=== PATIENT | female | born 1970 ===

== ENCOUNTER 2016-07-17 11:40 | Emergency (ER) | payer MEDICAID ==
[2016-07-17 11:44] VITALS: BMI 35.6
[2016-07-17 11:45] VITALS: BP 138/94; PULSE 72; RESP 19; TEMP 97.9; O2SAT 98
--- NOTE | 2016-07-17 12:30 | ED PDOC ---
HPI: General Adult Time Seen by Provider: 07/17/16 12:11 Chief Complaint (Nursing): Cough, Cold, Congestion Chief Complaint (Provider): Cough, cold, Congestion History Per: Patient History/Exam Limitations: no limitations Onset/Duration Of Symptoms: Days (X6 Days) Current Symptoms Are (Timing): Still Present Additional History Per: Patient Additional Complaint(s): Sara Farrar is a 46 y/o female with a past medical history of asthma, HTN and DM who presents to the ED with a chief complaint of a fever and cough that started 6 days ago. Associated symptoms includes chest congestion, runny nose, intermittent headache and right ear pain. Patient denies any recent travel or known sick contacts. Of note, patient reports to taking Ventolin, Advair, and Singulair for Asthma. Past Medical History Reviewed: Historical Data, Nursing Documentation, Vital Signs Vital Signs: Last Vital Signs Temp 97.9 F 07/17/16 11:44 Pulse 72 07/17/16 11:44 Resp 19 07/17/16 11:44 BP 138/94 H 07/17/16 11:44 Pulse Ox 98 07/17/16 12:51 - Medical History PMH: Asthma, Diabetes, HTN - Surgical History Surgical History: Other surgeries: Left Knee surgery, Right wrist surgery - Family History Family History: States: No Known Family Hx - Living Arrangements Living Arrangements: With Family - Social History Current smoker - smoking cessation education provided: No Ex-Smoker (has not smoked in the last 12 months): No Alcohol: Social Drugs: Denies - Home Medications Home Medications: Ambulatory Orders Medication Instructions Recorded Dorzolamide 2% [Trusopt] 1 drop OU TID #0 bottle 01/01/15 Albuterol 0.083% [Albuterol 0.083% 2.5 mg INH RQ4 PRN 11/04/15 Inhal Gladys (2.5 mg/3 ml) UD] Fluticasone/Salmeterol 250/50 1 puff IH TID 11/04/15 [Advair Diskus] Montelukast Sodium [Singulair] 10 mg PO DAILY 11/04/15 traMADol [Ultram] 50 mg PO .Q4-6 PRN 11/20/15 traMADol [Ultram] 50 mg PO PRN PRN 11/20/15 Ciprofloxacin [Cipro] 500 mg PO BID #6 tab 01/06/16 Dicyclomine [Bentyl] 10 mg PO QID PRN #10 cap 01/06/16 Ondansetron ODT [Zofran ODT] 4 mg PO Q6 PRN #10 odt 01/06/16 Azithromycin [Zithromax] 250 mg PO DAILY #6 tab 07/17/16 Benzonatate 200 mg PO TID PRN #20 capsule 07/17/16 - Allergies Allergies/Adverse Reactions: Allergies Allergy/AdvReac Type Severity Reaction Status Date / Time Penicillins Allergy Mild RASH Verified 07/17/16 12:11 Review of Systems ROS Statement: Except As Marked, All Systems Reviewed And Found Negative Constitutional: Positive for: Fever ENT: Positive for: Nose Congestion Respiratory: Positive for: Cough (with chest congestion). Negative for: Shortness of Breath, Hemoptysis, SOB with Exertion, Wheezing Gastrointestinal: Negative for: Nausea, Vomiting, Abdominal Pain Neurological: Positive for: Headache. Negative for: Dizziness Physical Exam - Reviewed Nursing Documentation Reviewed: Yes Vital Signs Reviewed: Yes - Physical Exam Appears: Positive for: Well, Non-toxic, No Acute Distress Head Exam: Positive for: ATRAUMATIC, NORMAL INSPECTION, NORMOCEPHALIC ENT: Positive for: Normal ENT Inspection, TM Is/Are (normal bilaterally), Nasal Congestion. Negative for: Pharyngeal Erythema, Tonsillar Exudate, Tonsillar Swelling Cardiovascular/Chest: Positive for: Regular Rate, Rhythm. Negative for: Murmur , Tachycardia Respiratory: Positive for: Normal Breath Sounds. Negative for: Wheezing, Respiratory Distress Gastrointestinal/Abdominal: Positive for: Normal Exam, Soft. Negative for: Tenderness Extremity: Negative for: Pedal Edema Neurologic/Psych: Positive for: Alert, Oriented - Laboratory Results Urine POC: Negative - ECG O2 Sat by Pulse Oximetry: 98 (RA) Pulse Ox Interpretation: Normal - Other Rad CXR X-Ray: Interpreted by Me, Viewed By Me X-Ray Interpretation: no infiltrate Medical Decision Making Medical Decision Makin: Initial Impression: 46 year old female with URI Symptoms Initial Plan: * Chest two views * ED Urine Stat * Re-Eval Will d/c with rx zithromax and tessalon perles. Patient instructed to continue with home advair and ventolin. Advised NSAID's for fever and body aches, fluids and rest. Advised PMD follow up in 2-3 days. Scribe Attestation: Documented by Mary Sauceda acting as a scribe for iLly Storm PA-C. Provider Scribe Attestation: All medical record entries made by the Scribe were at my direction and personally dictated by me. I have reviewed the chart and agree that the record accurately reflects my personal performance of the history, physical exam, medical decision making, and the department course for this patient. I have also personally directed, reviewed, and agree with the discharge instructions and disposition. Disposition - Clinical Impression Clinical Impression: Bronchitis - Patient ED Disposition Is Patient to be Admitted: No Counseled Patient/Family Regarding: Studies Performed, Diagnosis, Need For Followup, Rx Given - Disposition Referrals: Gulshan Brito MD [Staff Provider] - Disposition: Routine/Home Disposition Time: 12:56 Condition: STABLE Additional Instructions: Take rx meds as directed. Continue with home asthma meds. Over the counter tylenol or advil for fever or body aches. Rest and drink plenty of fluids. Follow up with primary care doctor in 2-3 days. Prescriptions: Azithromycin [Zithromax] 250 mg PO DAILY #6 tab Benzonatate 200 mg PO TID PRN #20 capsule PRN Reason: Cough Instructions: Acute Bronchitis (ED)
--- NOTE | 2016-07-17 13:08 | RAD ---
HISTORY: cough COMPARISON: 11/13/2015 TECHNIQUE: Chest PA and lateral FINDINGS: LUNGS: No active pulmonary disease. PLEURA: No significant pleural effusion identified. No pneumothorax apparent. CARDIOVASCULAR: Normal. OSSEOUS STRUCTURES: No significant abnormalities. VISUALIZED UPPER ABDOMEN: Normal. OTHER FINDINGS: None. IMPRESSION: No active disease.
== END 2016-07-17 13:00 | disposition home or self-care (01) ==
LOC: H.ER 11:40
DX: J06.9 Acute upper respiratory infection, unspecified (principal); J45.909 Unspecified asthma, uncomplicated; R50.9 Fever, unspecified; E11.9 Type 2 diabetes mellitus without complications; I10 Essential (primary) hypertension; R05 Cough; Z87.891 Personal history of nicotine dependence; Z88.0 Allergy status to penicillin

== ENCOUNTER 2017-06-23 11:15 | Emergency (ER) | payer MEDICAID ==
[2017-06-23 11:21] VITALS: BMI 36.2
[2017-06-23 11:22] VITALS: RESP 17
--- NOTE | 2017-06-23 12:49 | CT ---
PROCEDURE: CT HEAD WITHOUT CONTRAST. HISTORY: tingling, right lower lip, right hand, right head COMPARISON: Head CT without contrast 11/30/2012. TECHNIQUE: Axial computed tomography images were obtained through the head/brain without intravenous contrast. Radiation dose: Total exam DLP = 800.37 mGy-cm. This CT exam was performed using one or more of the following dose reduction techniques: Automated exposure control, adjustment of the mA and/or kV according to patient size, and/or use of iterative reconstruction technique. FINDINGS: HEMORRHAGE: No intracranial hemorrhage. BRAIN: No significant interval changes appreciated throughout. Normal rodriguez-white matter differentiation and density are appreciated throughout the cerebrum and cerebellum with the brainstem appearing unremarkable as well. There is no mass effect. There is no suspicious extra-axial fluid collection and the midline brain anatomy appears diffusely unremarkable. VENTRICLES: Unremarkable. No hydrocephalus. CALVARIUM: Unremarkable. PARANASAL SINUSES: Unremarkable as visualized. No significant inflammatory changes. MASTOID AIR CELLS: Unremarkable as visualized. No inflammatory changes. OTHER FINDINGS: None. IMPRESSION: Unremarkable unenhanced head CT with no significant interval change appreciated compared to prior head CT 11/30/2012.
[2017-06-23 13:18] LABS: ALB/GLOB RATIO 1.2 (1.0-2.1); ALT/SGPT 40 U/L (9-52); AST/SGOT 28 U/L (14-36); BLOOD UREA NITROGEN 17 mg/dl (7-17); CALCIUM 9.2 mg/dL (8.4-10.2); GFR AFRICAN-AMERICAN > 60; GFR NON-AFRICAN AMERICAN > 60
[2017-06-23 13:27] LABS: BASO % 0.5 % (0.0-2.0); EOS # 0.2 K/uL (0.0-0.7); EOS % 1.9 % (0.0-4.0); HEMOGLOBIN 12.6 g/dL (12.0-16.0); LYMPH % 33.4 % (20.0-40.0); MEAN CORPUSCULAR HEMOGLOBIN 26.8 pg (27.0-31.0); MEAN CORPUSCULAR HGB CONC 33.1 g/dL (33.0-37.0); MEAN PLATELET VOLUME 10.3 fl (7.2-11.7); MONO # 0.5 K/uL (0.0-0.8); MONO % 6.1 % (0.0-10.0); NEUT # 5.2 K/uL (1.8-7.0); NEUT % 58.1 % (50.0-75.0); NRBC % 0.2 % (0.0-0.0); RBC 4.69 Mil/uL (3.80-5.20); RED CELL DISTRIBUTION WIDTH 15.1 % (11.5-14.5)
--- NOTE | 2017-06-23 14:21 | ED PDOC ---
HPI: General Adult Time Seen by Provider: 06/23/17 11:40 Chief Complaint (Nursing): Weakness/Neurological Deficit Chief Complaint (Provider): Tingling right lower lip, right head and right right hand x 3 days History Per: Patient History/Exam Limitations: no limitations Onset/Duration Of Symptoms: Days Have you had recent travel within the past 21 days to any of the following countries: [place], [place], [place] or [place]?: No Additional Complaint(s): Pt states she was seen at her [facility] this morning and her BP was elevated. She was told to f.u with her PMD (clinic). Pt sates when she called she was told to come to the ER for evaluation. Pt reports "just a little tingling" in the lower right lip. No headache, no N/V, no fever/chills BP on my arrival to room 123/78 Past Medical History Reviewed: Historical Data, Nursing Documentation, Vital Signs Vital Signs: Last Vital Signs Temp 98 F 06/23/17 11:22 Pulse 90 06/23/17 11:22 Resp 17 06/23/17 11:22 BP 142/93 H 06/23/17 11:31 Pulse Ox 99 06/23/17 11:22 - Medical History PMH: Asthma, Depression, Diabetes Denies: HTN, Chronic Kidney Disease - Surgical History Surgical History: - Family History Family History: States: No Known Family Hx - Immunization History Hx Tetanus Toxoid Vaccination: No Hx Influenza Vaccination: No Hx Pneumococcal Vaccination: No - Home Medications Home Medications: Ambulatory Orders Medication Instructions Recorded Dorzolamide 2% [Trusopt] 1 drop OU TID #0 bottle 01/01/15 Albuterol 0.083% [Albuterol 0.083% 2.5 mg INH RQ4 PRN 11/04/15 Inhal Gladys (2.5 mg/3 ml) UD] Fluticasone/Salmeterol 250/50 1 puff IH TID 11/04/15 [Advair Diskus] Montelukast Sodium [Singulair] 10 mg PO DAILY 11/04/15 traMADol [Ultram] 50 mg PO .Q4-6 PRN 11/20/15 traMADol [Ultram] 50 mg PO PRN PRN 11/20/15 Ciprofloxacin [Cipro] 500 mg PO BID #6 tab 01/06/16 Dicyclomine [Bentyl] 10 mg PO QID PRN #10 cap 01/06/16 Ondansetron ODT [Zofran ODT] 4 mg PO Q6 PRN #10 odt 01/06/16 Azithromycin [Zithromax] 250 mg PO DAILY #6 tab 07/17/16 Benzonatate 200 mg PO TID PRN #20 capsule 07/17/16 - Allergies Allergies/Adverse Reactions: Allergies Allergy/AdvReac Type Severity Reaction Status Date / Time Penicillins Allergy Mild RASH Verified 07/17/16 12:11 Review of Systems ROS Statement: Except As Marked, All Systems Reviewed And Found Negative Constitutional: Negative for: Fever, Chills Neurological: Positive for: Other Physical Exam - Reviewed Nursing Documentation Reviewed: Yes Vital Signs Reviewed: Yes - Physical Exam Appears: Positive for: Well, Non-toxic, No Acute Distress Head Exam: Positive for: ATRAUMATIC, NORMAL INSPECTION, NORMOCEPHALIC Skin: Positive for: Normal Color, Warm, DRY Eye Exam: Positive for: EOMI, Normal appearance, PERRL ENT: Positive for: Normal ENT Inspection Neck: Positive for: Normal, Painless ROM Cardiovascular/Chest: Positive for: Regular Rate, Rhythm Respiratory: Positive for: CNT, Normal Breath Sounds Gastrointestinal/Abdominal: Positive for: Normal Exam, Soft. 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 Negative for: Motor/Sensory Deficits, Aphasia, Facial Droop - Laboratory Results Result Diagrams: 06/23/17 13:00 06/23/17 13:00 - ECG O2 Sat by Pulse Oximetry: 99 Medical Decision Making Medical Decision Making: Head CT normal. EKG Normal. Labs normal. Called [facility] for patient follow-up. Disposition - Clinical Impression Clinical Impression: Paresthesia - Patient ED Disposition Is Patient to be Admitted: No Counseled Patient/Family Regarding: Diagnosis, Need For Followup - Disposition Referrals: [facility] [Outside] Disposition: Routine/Home Disposition Time: 14:34 Condition: GOOD Additional Instructions: Please follow-up with PMD. Instructions: Paresthesias (DC)
[2017-06-23 16:07] VITALS: BP 123/76; PULSE 78; TEMP 97.9; O2SAT 100
--- NOTE | 2017-06-24 12:22 | CARD ---
APPROVED REPORT EKG Measurement Heart [id number] <Conclusion> Normal sinus rhythm Normal ECG
== END 2017-06-23 16:07 | disposition home or self-care (01) ==
LOC: H.ER 11:15
DX: R20.2 Paresthesia of skin (principal); E11.9 Type 2 diabetes mellitus without complications; F32.9 Major depressive disorder, single episode, unspecified; J45.909 Unspecified asthma, uncomplicated; Z88.0 Allergy status to penicillin